=== PATIENT | female | born 1965 | race Caucasian/White ===

== ENCOUNTER → 2019-07-19 | Outpatient (CLI) | payer BC | END | disposition home or self-care (01) | LOC: RESCLI 01:24 | DX: M25.511 Pain in right shoulder (principal); K58.9 Irritable bowel syndrome, unspecified; M15.9 Polyosteoarthritis, unspecified; I45.6 Pre-excitation syndrome; G89.29 Other chronic pain; K44.9 Diaphragmatic hernia without obstruction or gangrene; Z79.899 Other long term (current) drug therapy ==

== ENCOUNTER → 2022-04-18 | Outpatient (CLI) | payer OTHER ==
[2022-04-18 10:19] LABS: HEMATOCRIT 41.6 % (37.0-47.0); MEAN CORPUSCULAR HGB 29.5 pg (27.0-31.0); MEAN CORPUSCULAR HGB CONC 32.5 g/dl (33.0-37.0); MEAN PLATELET VOLUME 10.9 fl (9.6-12.3); RED BLOOD COUNT 4.57 10*6/uL (4.10-5.10); RED CELL DISTRI WIDTH 12.9 % (0-14.5)
[2022-04-18 10:46] LABS: BUN 18 mg/dl (7-24); CHLORIDE 109 mmol/L (98-107); POTASSIUM 4.1 mmol/L (3.5-5.1); SGOT/AST 12 IU/L (3-35); SGPT/ALT 23 U/L (12-78); SODIUM 143 mmol/L (136-145)
[2022-04-18 10:52] LABS: ALKALINE PHOSPHATASE 92 U/L (45-117); CHOLESTEROL 225 mg/dL (<200); FREE T4 0.96 ng/dl (0.76-1.46); LDL CHOLESTEROL 140 mg/dL (9-159); TOTAL PROTEIN 7.2 gm/dL (6.4-8.2); TRIGLYCERIDES 130 mg/dl (<150)
[2022-04-18 11:16] LABS: VITAMIN D, 25-HYDROXY 30.5 ng/mL (30-100)
== END | disposition home or self-care (01) ==
LOC: LAB 09:56
PROVIDERS: ATTEND Family Medicine
DX: Z00.00 Encounter for general adult medical examination without abnormal findings (principal); R53.83 Other fatigue; E55.9 Vitamin D deficiency, unspecified; I45.6 Pre-excitation syndrome; I45.4 Nonspecific intraventricular block; N39.498 Other specified urinary incontinence